=== PATIENT | male | born 1955 | race Caucasian/White ===

== ENCOUNTER 2019-11-04 01:54 | Emergency (ER) | payer OTHER, SELFPAY ==
[2019-11-04 02:08] VITALS: BP 164/88; PULSE 57; RESP 16; TEMP 36.7; O2SAT 100; BMI 26.6
--- NOTE | 2019-11-04 02:16 | CT_ITS ---
PROCEDURE: CT ABDOMEN PELVIS WO CON CLINICAL INDICATION: kidney stone Left flank pain and difficulty urinating. Patient feels like prostate enlarged. COMPARISON: No exams were available for comparison TECHNIQUE: Axial images obtained with sagittal and coronal reformats. All CT scans at the facility use one or more dose reduction, viz: automated exposure control, ma/kV adjustment per patient size (including targeted exams where dose is matched to indication, i.e. head), or iterative reconstruction technique. FINDINGS: LOWER THORAX: No acute finding. Included extent of the lung bases are unremarkable. ABDOMEN & PELVIS: Hepatobiliary: There is mildly decreased attenuation of the liver, consistent with mild steatosis. No discrete hepatic lesion is identified. The liver has a normal size with a smooth surface. The gallbladder is surgically absent. No demonstrated biliary ductal dilatation. Normal unenhanced pancreas and spleen. Small splenule. The spleen is not enlarged. The adrenal glands are normal. Kidneys, ureter and bladder: Both kidneys have a normal size and morphology. A punctate stone is seen in the lower pole darek of the left kidney. No hydronephrosis. Bilateral perinephric nonspecific fat stranding. Both ureters have normal course and caliber. The urinary bladder is unremarkable. No ureteral or bladder calculus is identified. Gastrointestinal: The stomach and small bowel are normal with no obstruction. Large bowel is within normal limits. Appendix is unremarkable. Reproductive organs: Prostate is mildly enlarged and elevates the bladder base, measures 4.8 centimeter in transverse dimension. Unremarkable seminal vesicles. Lymphatic system: There is no significant adenopathy within the abdomen/pelvis. Vasculature: Diffuse atheromatous calcification of the abdominal aorta and right common iliac artery. Normal caliber abdominal aorta. Peritoneum: No free fluid, free air or inflammation-demonstrated. Abdominal wall and musculoskeletal: Very small fat containing umbilical hernia. Multilevel moderately advanced degenerative thoracolumbar sacral spondylosis with disc space narrowing, endplate sclerosis and osteophyte formation demonstrated. Mild vertebral compression deformities, largest at T12 with loss of about 20-30 percent anterior body height. 5 millimeter retrolisthesis of L2 on L3 and L3 on L4 vertebra. From L3-L4 through L5-S1 there is significant bilateral neural foraminal narrowing. IMPRESSION: 1. Nonobstructing punctate stone at lower pole of the left kidney. No hydronephrosis. 2. Mildly enlarged prostate gland. Please correlate with serum PSA values. 3. Bilateral nonspecific perinephric stranding. Correlation with urinalysis may be of benefit to exclude UTI. 4. Multilevel moderately advanced degenerative thoracolumbar and sacral spondylosis. Severe bilateral neural foraminal narrowing from L3-L4 through L5-S1. 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 Dictated by: Yesica Turner 11/04/2019 08:26 Electronically signed by Yesica Turner in [place] 11/04/2019 08:26
[2019-11-04 02:21] LABS: Microscopic, Urine URINE MICROSCOPIC (MICROSCOPIC)
[2019-11-04 02:25] LABS: Appearance,Urine CLEAR (Clear); Basophils # 0.1 K/mm3 (0-0.2); Basophils % 0.6 % (0.1-2.0); Bilirubin,Urine Negative (Negative); Blood, Urine Negative (Negative); Chloride 101 mmol/L (98-107); Color,Urine YELLOW (Yellow); Eosinophils # 0.2 K/mm3 (0.0-0.4); Eosinophils % 2.1 % (0.1-12.0); Glucose,Urine (UA) Negative (Negative); Hematocrit 43.7 % (42.0-52.0); Hemoglobin 15.1 g/dL (14.1-18.0); Ketones,Urine Negative (Negative); Leukocyte Esterase,Urine Negative (Negative); Lymphocytes # 2.5 K/mm3 (0.7-4.5); Mean Corpuscular HGB Conc 34.6 g/dL (31.8-35.4); Mean Corpuscular Hemoglobin 30.6 pg (27.0-31.2); Mean Corpuscular Volume 88.3 fl (80-94); Mean Platelet Volume 7.7 fl (7.4-10.4); Monocytes # 0.4 K/mm3 (0.1-1.0); Monocytes % 5.3 % (1.7-9.3); Neutrophils # 4.3 K/mm3 (1.8-7.8); Neutrophils % 57.9 % (37.0-80.0); Nitrate,Urine Negative (Negative); Platelet Count 134 K/mm3 (142-424); Protein,Urine Negative (Negative); Red Blood Count 4.95 M/mm3 (4.60-6.20); Red Cell Distribution Width 13.9 % (11.5-17.5); Sodium 139 mmol/L (136-145); Specific Gravity, Urine 1.015 (1.005-1.030); Urobilinogen,Urine 0.2 EU/dl (0.2); White Blood Count 7.4 K/mm3 (4.8-10.8)
[2019-11-04 02:26] LABS: Potassium 3.9 mmoL/L (3.5-5.1)
[2019-11-04 02:28] LABS: Alanine Aminotransferase 34 U/L (12-78); Alkaline Phosphatase 69 U/L (38-126); Amylase 63 U/L (30-110); Aspartate Amino Transferase 30 U/L (17-59); Bilirubin,Total 0.5 mg/dl (0.2-1.3); Blood Urea Nitrogen 12 mg/dl (9-20); Creatinine Clearance Estimated 93 mL/min (50-200); Estimated Glomerular Filt Rate 97 ml/min (>60); GFR (African American) 117 ML/MIN (>60); Glucose 144 mg/dl (74-100); Lipase 206 U/L (23-300)
[2019-11-04 02:29] LABS: Albumin Level 4.1 g/dl (3.5-5.0); Albumin/Globulin Ratio 1.5 (1.1-1.8); Globulin 2.8 g/dL (1.3-3.2); Total Protein,Serum 6.9 g/dl (6.3-8.2)
[2019-11-04 02:30] VITALS: BP 156/82; PULSE 64; RESP 16; O2SAT 100
[2019-11-04 02:30] LABS: Bacteria,Urine Trace /lpf; Squamous Epithelial Cell,Urine Occasional #/hpf (0-5); WBC,Urine Occasional #/hpf (0-3)
--- NOTE | 2019-11-04 02:48 | [facility].EDGENADL ---
ED Disposition Clinical Impression: Abdominal pain, Lumbar stenosis Disposition: Home, Self-Care Condition on Discharge: Good Instructions: DI for Urinary Tract Infection (UTI), DI for Urinary Tract Infection in Children Prescriptions: Tamsulosin HCl [Flomax 0.4mg capsule] 0.4 mg PO HS #30 cap Prescription Printed Nabumetone 750 mg PO BID 10 Days #20 tab Prescription Printed Tizanidine HCl [Zanaflex 4mg tablet] 4 mg PO TID 10 Days #30 tab Prescription Printed Referrals: PCP,No [Primary Care Provider] - - Critical Care Critical Care Time: No Attestation: On 11/04/19, the high probability of a clinically significant, sudden or life threatening deterioration of the following system(s) required my full and direct attention, intervention and personal management. The time I documented below is in addition to time spent performing reported procedures but includes the following listed in this critical care notation. Medical Decision Making - Medical Records Medical records reviewed: Yes: I reviewed the patient's medical records. - Steven Inquiry Pt receiving controlled substance: No Vital Signs: 11/04/19 02:08 Temperature 98.1 F Temperature Source Oral Pulse Rate [Right Brachial] 57 L Respiratory Rate 16 Blood Pressure [Right Arm] 164/88 H Blood Pressure Mean [Right Arm] 113 Blood Pressure Source [Right Arm] Automatic Cuff Blood Pressure Position [Right Arm] Sitting 02 Sat by Pulse Oximetry 100 Oxygen Delivery Method Room Air - Lab Data Lab results reviewed: Yes: I reviewed the patient's lab results. Lab Results 11/04/19 02:05: Urine Color Yellow, Urine Appearance Clear, Urine pH 6.0, Ur Specific [place] 1.015, Urine Protein Negative, Urine Glucose (UA) Negative, Urine Ketones Negative, Urine Blood Negative, Urine Nitrate Negative, Urine Bilirubin Negative, Urine Urobilinogen 0.2, Ur Leukocyte Esterase Negative, Urine WBC Occasional, Ur Squamous Epith Cells Occasional, Urine Bacteria Trace 11/04/19 02:05: WBC 7.4, RBC 4.95, Hgb 15.1, Hct 43.7, MCV 88.3, MCH 30.6, MCHC 34.6, RDW 13.9, Plt Count 134 L, MPV 7.7, Neut % (Auto) 57.9, Lymph % (Auto) 34.0, [place] % (Auto) 5.3, Eos % (Auto) 2.1, Baso % (Auto) 0.6, Neut # (Auto) 4.3, Lymph # (Auto) 2.5, [place] # (Auto) 0.4, Eos # (Auto) 0.2, Baso # (Auto) 0.1 11/04/19 02:05: Sodium 139, Potassium 3.9, Chloride 101, Carbon Dioxide 30, Anion Gap 11.9, BUN 12, Creatinine 0.80, Estimated Creat Clear 93, Estimated GFR 97, Est GFR ( Amer) 117, Glucose 144 H, Calcium 9.0, Total Bilirubin 0.5, AST 30, ALT 34, Alkaline Phosphatase 69, Total Protein 6.9, Albumin 4.1, Globulin 2.8, Albumin/Globulin Ratio 1.5, Amylase 63, Lipase 206 Result diagrams: 11/04/19 02:05 11/04/19 02:05 Orders (Tests/Meds): ED MEDICATIONS Generic Name Dose Route Start Last Admin Trade Name Freq PRN Reason Stop Dose Admin Sodium Chloride 1,000 mls @ 999 mls/hr 11/04/19 02:30 Sod Chlor 0.9% 1000ml Bag IV 11/04/19 03:30 .[id number] GILLIAN Discontinued Medications Generic Name Dose Route Start Last Admin Trade Name Freq PRN Reason Stop Dose Admin Ketorolac Tromethamine 30 mg 11/04/19 02:16 Toradol 30mg/Ml Vial IV 11/04/19 02:17 ONCE ONE Tamsulosin HCl 0.8 mg 11/04/19 21:00 Flomax 0.4mg Capsule PO 12/04/19 20:59 HS GILLIAN Tamsulosin HCl 0.8 mg 11/04/19 02:46 Flomax 0.4mg Capsule PO 11/04/19 02:47 HS ONE ORDERS Category Date Time Status CT abdomen pelvis wo con Stat Cat Scan 11/04/19 02:16 Ordered - CT Data CT Scan: Abdomen, Pelvis Time Received: 03:[address] Reviewed: Yes: I have reviewed the patient's CT results Preliminary Findings: Normal/NAD General Adult HPI - General Chief complaint: Urogenital-Male Stated complaint: Difficulty urinating;pain in left lower quadrant Time Seen by Provider: 11/04/19 02:48 Mode of Arrival: Ambulatory Source of Information: Patient Limitations: No Limitations Description of Symptoms (Re
[2019-11-04 02:59] LABS: Anion Gap 11.9 mEq/L (5-15); Carbon Dioxide 30 mmol/L (22.0-30.0)
[2019-11-04 03:02] VITALS: BP 153/84; PULSE 62; RESP 17; O2SAT 99
[2019-11-04 03:38] VITALS: BP 148/78; PULSE 58; RESP 16; TEMP 36.7; O2SAT 100
== END 2019-11-04 03:40 | disposition home or self-care (01) ==
PROVIDERS: Emergency Provider Family Medicine
DX: N40.1 Benign prostatic hyperplasia with lower urinary tract symptoms (principal); R39.12 Poor urinary stream; R73.9 Hyperglycemia, unspecified; Z79.899 Other long term (current) drug therapy
CPT/HCPCS: 74176; 80053; 81001; 82150; 83690; 85025; 96365; 96375; 99283